=== PATIENT | female | born 1975 | race Caucasian/White ===

== ENCOUNTER 2020-09-29 01:37 | Emergency (ER) | payer BC, SELFPAY ==
[2020-09-29 01:37] VITALS: BP 150/100; PULSE 100; RESP 20; TEMP 36.6; O2SAT 97
[2020-09-29 01:40] VITALS: PULSE 98
--- NOTE | 2020-09-29 02:07 | ECG_ITS ---
Measurements Intervals [place] Rate: 96 P: 38 IN: 168 QRS: -4 QRSD: 99 T: 40 QT: 376 QTc: 476 Interpretive Statements SINUS RHYTHM INCOMPLETE RIGHT BUNDLE BRANCH BLOCK DELAYED PRECORDIAL R/S TRANSITION BASELINE WANDER- III, AVL BORDERLINE ECG Electronically Signed On 09-29-2020 6:52:41 CDT by Devan Pierce D.O.
[2020-09-29] MEDS: ALPRAZolam (*CRX) 0.5 MG TABLET PO (02:20)
--- NOTE | 2020-09-29 02:40 | ED.SYNCOPE ---
HPI - Syncope General Chief Complaint: Syncope Stated Complaint: PASSED OUT Source: patient and family Mode of arrival: ambulatory History of Present Illness HPI narrative: this is a 44-year-old female with a history of old CVA, hypothyroidism and hypertension that was in the waiting room and was given the news that her mother had while in our ER her mother was brought in with full cardiac arrest. After talking to family the patient became distraught very emotional and passed out. There was no tongue biting did not lose bowel or bladder function there was no seizure activity. MD complaint: loss of consciousness Onset (ago): minute(s) Duration of episode: 5 -: minutes(s) Prodromal symptoms: other ( Grieving) Witnessed: Yes - by Other ( medical staff in the waiting room) Context: other ( emotional after learning of the of her mother) Injuries sustained associated with event: none Current symptoms: none History: seizure disorder Related Data Home Medications Medication Instructions Recorded Confirmed amitriptyline 75 mg PO DAILY 09/29/20 09/29/20 enalapril maleate 20 mg PO DAILY 09/29/20 09/29/20 gabapentin 300 mg PO DAILY 09/29/20 09/29/20 levetiracetam 250 mg PO DAILY 09/29/20 09/29/20 levothyroxine 150 mcg PO DAILY 09/29/20 09/29/20 spironolactone 50 mg PO DAILY 09/29/20 09/29/20 Allergies Allergy/AdvReac Type Severity Reaction Status Date / Time latex Allergy Unknown HIVES-CONDOMS, Verified 11/25/17 07:42 GLOVES nitrofurantoin Allergy Unknown HIVES Verified 11/25/17 07:42 Review of Systems Review of Systems: All systems reviewed & are unremarkable except as noted in HPI and below PMFSH Past Medical History Medical History Cerebrovascular accident, old HTN (hypertension) Hypothyroidism (acquired) Exam Const: General: no acute distress and alert Orientation/consciousness: patient oriented x3 Limitations: altered mental status HENMT: Head: normal to inspection Eyes: Conjunctivae: conjunctivae normal Pupils: Equal, round and reactive pupils present Neck: Neck: normal visual inspection, no lymphadenopathy and no meningeal signs Chest: Chest palpation & inspection: normal inspection of the chest Resp: Effort & Inspection: normal respiratory effort Auscultation: clear to auscultation bilaterally Cardio: Rate: regular rate Rhythm: regular rhythm GI: Auscultation: normal bowel sounds : General: Yes no CVA tenderness Urinary Catheter: Urinary Catheter: patent and draining Back/Spine/Pelvis: Back: no CVA tenderness Skin: General skin exam: normal color Rashes: no rashes Neuro: General: patient oriented x3, moves all extremities, no meningeal signs and no focal motor deficits Extrem: General: normal to inspection and no pedal edema Psych: Affect: Anxious affect present Course Course Emergency Course: patient awake alert is by her side still motion all over the of her mother, reviewed EKG with patient patient received 0.5 of Xanax. Vital Signs Vital signs: Vital Signs Temperature 36.6 C 09/29/20 01:37 Pulse Rate 100 09/29/20 01:37 Respiratory Rate 20 09/29/20 01:37 Blood Pressure 150/100 H 09/29/20 01:37 Pulse Oximetry 97 09/29/20 01:37 Temperature 36.6 C 09/29/20 01:37 Pulse Rate 100 09/29/20 01:37 Respiratory Rate 20 09/29/20 01:37 Blood Pressure 150/100 H 09/29/20 01:37 Pulse Oximetry 97 09/29/20 01:37 Critical Care Time Critical Care Time Critical Care Time: No Discharge Plan Discharge Clinical Impression: Grieving, Fainting spell Patient Disposition: Home, Self-Care Condition: Stable Instructions: Antibiotic Form, Syncope (ED) Additional Instructions: advised to follow-up with primary care physician if symptoms persist or worsen. Prescriptions: No Action amitriptyline 75 mg tablet 75 mg PO DAILY RF: 0 enalapril satya
[2020-09-29 03:21] VITALS: BP 143/110; PULSE 100; RESP 20; O2SAT 96
== END 2020-09-29 03:25 | disposition home or self-care (01) ==
PROVIDERS: Emergency Provider Emergency Medicine
DX: F43.29 Adjustment disorder with other symptoms (principal); R55 Syncope and collapse
CPT/HCPCS: 93005; 99282; 99283; A9270

== ENCOUNTER 2021-10-20 12:21 | Outpatient (CLI) | payer BC, MEDICARE, MEDICAID, SELFPAY ==
--- NOTE | ~2021-10-20 | XR_ITS ---
XR hip RT min 2V DATE: 10/20/2021 12:40 INDICATION: Right hip chronic pain TECHNIQUE: AP and lateral views COMPARISON: None FINDINGS: No fracture or dislocation, avascular necrosis or bone destruction of the right hip. Right hip joint space appears well preserved. Alignment is intact at the pubic symphysis and sacroiliac joints. IMPRESSION: Negative right hip Reviewed, dictated and finalized at location A. IMPRESSION: Negative right hip
== END 2021-10-20 12:22 | disposition home or self-care (01) ==
LOC: CHSIMG 12:24
PROVIDERS: PCP Family Medicine; Visit Provider Physician Assistant
DX: M25.551 Pain in right hip (principal)
CPT/HCPCS: 73502